=== PATIENT | male | born 1975 | race Caucasian/White ===

== ENCOUNTER 2022-04-06 10:19 | Emergency (ER) | payer OTHER ==
--- NOTE | 2022-04-06 12:06 | RAD REPORT ---
EXAM DESCRIPTION: RAD - Ankle Left 3 View -04/06/2022 11:17 am CLINICAL HISTORY: Left ankle pain status post injury FINDINGS: Lateral soft tissue swelling. Multiple bony densities lie inferior to the medial malleolus. These probably are avulsed fragments. G iven the corticated margins and lack of significant adjacent soft tissue swelling these probably are old rather than acute. Vague lucency is present within talar dome. This could represent a prominent trabecula or probably le ss likely nondisplaced fracture. No dislocation noted If the patient's symptoms do not improve then MRI would recommended for further evaluation
--- NOTE | 2022-04-06 12:08 | RAD REPORT ---
EXAM DESCRIPTION: RAD - Foot Left 3 View - 04/06/2022 11:17 am CLINICAL HISTORY: Left Foot pain status post injury FINDINGS: Hallux valgus deformity Lateral soft tissue swelling. Multiple bony densities lie inferior to the medial malleolus. These probably are avulsed fragments. G iven the corticated margins and lack of significant adjacent soft tissue swelling these probably are old rather than acute. Vague lucency is present within talar dome. This could represent a prominent trabecula or probably le ss likely nondisplaced fracture. No dislocation noted If the patient's symptoms do not improve then MRI would recommended for further evaluation
--- NOTE | 2022-04-06 12:31 | ER ---
Nurse's Notes [facility] Name: Prabhakar Cali Age: 46 yrs Sex: Male : 1975 Arrival Date: 04/06/2022 Time: 10:22 Bed 8 Private MD: Diagnosis: Sprain of ankle Presentation: 04/06 10:35 Chief complaint: EMS states: Pt walking in parking lot rolled ankle in a pothole. Lt kl ankle swelling and pain. IV was started FLARE BREAKER by EMS and pt was given 50 mcg of fentanyl. Coronavirus screen: Vaccine status: Patient reports being unvaccinated. Ebola Screen: Patient negative for fever greater than or equal to 101.5 degrees Fahrenheit, and additional compatible Ebola Virus Disease symptoms Patient denies exposure to infectious person. Patient denies travel to an Ebola-affected area in the 21 days before illness onset. Initial Sepsis Screen: Does the patient meet any 2 criteria? No. Patient's initial sepsis screen is negative. Does the patient have a suspected source of infection? No. Patient's initial sepsis screen is negative. Risk Assessment: Do you want to hurt yourself or someone else? Patient reports no desire to harm self or others. Onset of symptoms was April 06, 2022. Care prior to arrival: Splint applied. Medication(s) given: fentanyl. 10:35 Method Of Arrival: EMS: [facility] 10:35 Acuity: KELLI 4 kl Triage Assessment: 10:40 General: Appears comfortable, Behavior is calm, cooperative. Pain: Complains of pain in kl left lateral ankle, left Achilles, left medial ankle and anterior aspect of left ankle Pain currently is 4 out of 10 on a pain scale. Quality of pain is described as aching, Pain began suddenly, Is continuous, Alleviated by Aggravated by increased activity, repositioning. Musculoskeletal: Swelling present in left lateral ankle, left Achilles, left medial ankle and anterior aspect of left ankle. Historical: - Allergies: 10:39 No Known Allergies; kl - Home Meds: 10:39 None [Active]; kl - PMHx: 10:39 None; kl - Immunization history:: Adult Immunizations up to date. - Social history:: Smoking status: Patient reports the use of cigarette tobacco products. Screenin:41 Abuse screen: Denies threats or abuse. Denies injuries from another. Nutritional kl screening: No deficits noted. Tuberculosis screening: No symptoms or risk factors identified. Fall Risk Gait- Impaired (20 pts.). Assessment: 10:41 General: see triage note. kl 12:30 Reassessment: Patient and/or family updated on plan of care and expected duration. Pain kl level reassessed. Patient is alert, oriented x 3, equal unlabored respirations, skin warm/dry/pink. Patient states symptoms have improved. PT TOLERATED ORTHO PLACEMENT AND REPORTS PAIN A 5 ON 1-10 SCALE. PROVIDER AT BEDSIDE AND IS GOING TO ORDER MORE MEDS. . 14:00 Reassessment: Patient and/or family updated on plan of care and expected duration. Pain kl level reassessed. ORTHO GLASS FORMED AND PT HAVING NO INCREASE IN PAIN. PT ABLE TO USE CRUTCHES WELL BUT IS TAKEN OUT TO LOBBY IN A WHEELCHAIR WHILE WAITING FOR HIS RIDE Patient states feeling better. Patient states symptoms have improved. Vital Signs: 10:35 BP 153 / 98; Pulse 73; Resp 16; Temp 97.7(TE); Pulse Ox 98% ; Weight 101.15 kg; Height kl 6 ft. 0 in. (182.88 cm); Pain 4/10; 11:45 BP 147 / 92; Pulse 76; Resp 16; Pulse Ox 97% ; Pain 4/10; kl 12:48 BP 145 / 96; Pulse 77; Resp 17; Pulse Ox 98% ; Pain 5/10; kl 10:35 Body Mass Index 30.24 (101.15 kg, 182.88 cm) ED Course: 10:22 Patient arrived in ED. 10:24 Sofia Quach FNP is [facility]. jh7 10:24 Sondra Parra MD is Attending Physician. jh7 10:39 Triage completed. kl 10:41 Arm band placed on right wrist. Patient placed in the treatment room, on a stretcher. kl 10:42 Bed in low position. Call light in reach. Side rails up X 1. kl 10:42 No provider procedures requiring assistance completed. kl 10:42 X-ray(s) taken. kl 11:19 XRAY Ankle LEFT 3 view In Process Unspecified. EDMS 11:19 XRAY Foot LEFT 3 View In Process Unspecified. EDMS 12:30 Pj Silver MD is Referral Physician. jh7 12:46 Crutch training done. Tobias wrap to left ankle Orthoglass splint: Posterior short lleg kl splint applied on left leg. stirrup splint applied on left leg. 13:00 IV discontinued, intact, bleeding controlled, No redness/swelling at site. Pressure kl dressing applied. Administered Medications: 12:45 Drug: [place] (HYDROcodone-acetaminophen) (7.5 mg-325 mg) 1 tabs Route: PO; 14:17 Follow up: Response: Pain is decreased Medication: 10:42 VIS not applicable for this client. Outcome: 12:30 Discharge ordered by MD. barker 14:00 Discharged to home via wheelchair, with crutches. 14:00 Condition: improved kl 14:00 Discharge instructions given to patient, Instructed on discharge instructions, follow up and referral plans. Demonstrated understanding of instructions, follow-up care, medications, crutch walking, Prescriptions given X 2. 14:17 Patient left the ED. Signatures: Dispatcher [employer] Bettina Flores RN RN kl Smirch, Shelby, RN RN ss Hadash, Jennifer, MANAGER INTERNAL MANAGER INTERNAL [facility]
--- NOTE | 2022-04-06 12:31 | EDPHYS ---
Physician Documentation [facility] Name: Prabhakar Cali Age: 46 yrs Sex: Male : 1975 Arrival Date: 04/06/2022 Time: 10:22 Bed 8 Private MD: ED Physician Sondra Parra HPI: 04/06 10:45 This 46 yrs old Male presents to ER via EMS with complaints of L ankle pain/injury. jh7 10:45 The patient presents with decreased range of motion, a deformity, an injury, pain, that jh7 is acute. The complaints affect the left ankle. Onset: The symptoms/episode began/occurred acutely. Associated signs and symptoms: Pertinent positives: swelling, Pertinent negatives: calf tenderness, fever, nausea, numbness. Patient reports that while at work he stepped in a hole and his ankle inverted. Complains of left ankle pain and swelling.. Historical: - Allergies: 10:39 No Known Allergies; kl - Home Meds: 10:39 None [Active]; kl - PMHx: 10:39 None; kl - Immunization history:: Adult Immunizations up to date. - Social history:: Smoking status: Patient reports the use of cigarette tobacco products. ROS: 10:45 Constitutional: Negative for fever, chills, and weight loss, ENT: Negative for injury, jh7 pain, and discharge, Neck: Negative for injury, pain, and swelling, Cardiovascular: Negative for chest pain, palpitations, and edema, Respiratory: Negative for shortness of breath, cough, wheezing, and pleuritic chest pain, Abdomen/GI: Negative for abdominal pain, nausea, vomiting, diarrhea, and constipation, Back: Negative for injury and pain, Skin: Negative for injury, rash, and discoloration, Neuro: Negative for headache, weakness, numbness, tingling, and seizure. 10:45 MS/extremity: Positive for injury or acute deformity, decreased range of motion, pain, swelling, Negative for abrasion, laceration. 10:45 All other systems are negative. Exam: 10:45 Constitutional: This is a well developed, well nourished patient who is awake, alert, jh7 and in no acute distress. Head/Face: Normocephalic, atraumatic. Neck: Trachea midline, no thyromegaly or masses palpated, and no cervical lymphadenopathy. Supple, full range of motion without nuchal rigidity, or vertebral point tenderness. No Meningismus. Cardiovascular: Regular rate and rhythm with a normal S1 and S2. No gallops, murmurs, or rubs. Normal PMI, no JVD. No pulse deficits. Respiratory: Lungs have equal breath sounds bilaterally, clear to auscultation and percussion. No rales, rhonchi or wheezes noted. No increased work of breathing, no retractions or nasal flaring. Abdomen/GI: Soft, non-tender, with normal bowel sounds. No distension or tympany. No guarding or rebound. No evidence of tenderness throughout. Back: No spinal tenderness. No costovertebral tenderness. Full range of motion. Skin: Warm, dry with normal turgor. Normal color with no rashes, no lesions, and no evidence of cellulitis. Neuro: Awake and alert, GCS 15, oriented to person, place, time, and situation. Sensory grossly intact. Normal gait. 10:45 Musculoskeletal/extremity: ROM: limited active range of motion, in the left medial ankle and left lateral ankle, limited passive range of motion due to pain, in all extremities, in the left medial ankle and left lateral ankle, Circulation is intact in all extremities. Sensation intact. Vital Signs: 10:35 BP 153 / 98; Pulse 73; Resp 16; Temp 97.7(TE); Pulse Ox 98% ; Weight 101.15 kg; Height kl 6 ft. 0 in. (182.88 cm); Pain 4/10; 11:45 BP 147 / 92; Pulse 76; Resp 16; Pulse Ox 97% ; Pain 4/10; kl 12:48 BP 145 / 96; Pulse 77; Resp 17; Pulse Ox 98% ; Pain 5/10; kl 10:35 Body Mass Index 30.24 (101.15 kg, 182.88 cm) kl Procedures: 12:30 Splinting: Splint applied to left medial ankle and left lateral ankle using Orthoglass 7 splint, applied by nurse. Patient tolerated well. MDM: 10:24 Patient medically screened. [facility] 12:30 Differential diagnosis: fracture, sprain. Data reviewed: vital signs, nurses notes, [facility] radiologic studies, plain films. Data interpreted: Pulse oximetry: is 98 %. Interpretation: normal. Counseling: I had a detailed discussion with the patient and/or guardian regarding: the historical points, exam findings, and any diagnostic results supporting the discharge/admit diagnosis, the need for outpatient follow up, a orthopedic surgeon, to return to the emergency department if symptoms worsen or persist or if there are any questions or concerns that arise at home. 04/06 10:31 Order name: XRAY Ankle LEFT 3 view; Complete Time: 12:25 [facility] 04/06 10:31 Order name: XRAY Foot LEFT 3 View; Complete Time: 12:25 [facility] 04/06 12:09 Order name: Splint - Posterior Leg: posterior short leg splint with stirrup [facility] 04/06 12:09 Order name: Crutches; Complete Time: 12:46 [facility] Administered Medications: 12:45 Drug: [place] (HYDROcodone-acetaminophen) (7.5 mg-325 mg) 1 tabs Route: PO; kl 14:17 Follow up: Response: Pain is decreased kl Disposition: 15:24 Co-signature as Attending Physician, Sondra Parra MD STAFF ATTESTATION STATEMENT I sd2 was immediately available on-site in the Emergency Department for consultation in the care of the patient. Sondra Parra MD. Disposition Summary: 04/06/22 12:30 Discharge Ordered Location: Home [facility] Problem: new [facility] Symptoms: have improved [facility] Condition: Stable [facility] Diagnosis - Sprain of ankle [facility] Followup: [facility] - With: Pj Silver MD - When: 2 - 3 days - Reason: Recheck today's complaints Discharge Instructions: - Discharge Summary Sheet [facility] - Ankle Sprain [facility] - Cast or Splint Care, Adult [facility] - Crutch Use, Adult [facility] Forms: - Medication Reconciliation Form [facility] - Thank You Letter [facility] - Prescription Opioid Use [facility] Prescriptions: - Naprosyn 500 mg Oral Tablet - take 1 tablet by ORAL route 2 times per day take with food; 30 tablet; Refills: [facility] 0, Product Selection Permitted - Tramadol 50 mg Oral Tablet - take 1 tablet by ORAL route every 8 hours as needed; 12 tablet; Refills: 0, jh7 Product Selection Permitted Signatures: Dispatcher [employer] Bettina Flores RN RN kl Hadash, Jennifer, FNP FNP 7 Fidel, Sondra, MD MD sd2
[2022-04-06] MEDS ORDERED: HYDROCODONE/APAP 7.5/325 MG TAB ONE (12:52)
[2022-04-06 14:26] VITALS: TEMP 97.7
[2022-04-06 14:31] VITALS: BP 145/96; O2SAT 98
== END 2022-04-06 14:17 | disposition home or self-care (01) ==
LOC: ER 10:19
DX: S93.402A Sprain of unspecified ligament of left ankle, initial encounter (principal); F17.210 Nicotine dependence, cigarettes, uncomplicated
CPT/HCPCS: 99284